=== PATIENT | male | born 1970 | race Caucasian/White ===

== ENCOUNTER 2019-03-13 17:46 | Emergency (ER) | payer MEDICAID ==
--- NOTE | 2019-03-13 18:20 | ED Physician Chart ---
ED Chief Complaint/HPI - Patient Information Date Seen:: 03/13/19 Time Seen:: 18:10 Chief Complaint:: left wrist pain History of Present Illness:: At about 1300 today patient fell 6-8 feet off a ladder breaking with his left hand apparently hyperextending his wrist as he landed. Patient denies other injuries. Patient was drinking alcohol today. Allergies:: Allergies Allergy/AdvReac Type Severity Reaction Status Date / Time No Known Allergies Allergy Verified 03/13/19 18:09 Vitals:: Vital Signs - 8 hr 03/13/19 17:57 Temp 99.2 F HR 90 RR 18 BP 118/78 O2 Sat % 97 Historian:: Patient, Family Member ED Review of Systems - Review of Systems General/Constitutional: No fever, No chills Skin: No skin lesions Head: No headache Eyes: No loss of vision ENT: No earache Neck: No neck pain, No swelling Cardio Vascular: No chest pain, No palpitations Pulmonary: No SOB G/U: No dysuria Musculoskeletal: Bone or joint pain Endocrine: No polyuria Psychiatric: No prior psych history, No depression, No anxiety Hematopoietic: No bruising Allergic/Immuno: No urticaria Neurological: No syncope, No focal symptoms ED Past Medical History - Past Medical History Past Medical History: No significant medical hx Family History: None Social History: Non Smoker, Alcohol Surgical History: None Psychiatricy History: None Medication: None Family Medical History - Family Member Mother History Unknown: Yes ED Physical Exam - Physical Examination General/Constitutional: Well-developed, well-nourished, Alert, No distress Head: Atraumatic Eyes: Lids, conjuctiva normal, PERRL Skin: Nl inspection, No rash ENMT: External ears, nose nl Neck: No nuchal rigidity Respiratory: Nl effort/Exclusion, Clear to Auscultation Cardio Vascular: RRR, No murmur, gallop, rubs GI: No tenderness/rebounding/guarding, No organomegaly, No hernia : No CVA tenderness Extremities: Normal digits & nails Other Extremities comments:: Left wrist: Deformity compatible with Colles' fracture: Strong left radial pulse ; capillary refill less than 2 seconds; wiggles fingers okay ED Assessment - Assessment General Assessment: Colle's fracture noted on x-ray. I asked the patient if he wanted me to try to reduce the fracture and he answered affirmatively. Skin cleansed with Betadine solution; about 15 mL of 1% lidocaine used for hematoma block; had car rental sales assistant apply distal traction on the left hand while the forearm was stabilized and at the same time I applied dorsal to palmar pressure with my left thumb on the area of maximum deformity of the radius; a palpable movement of bone was noted under my thumb; post reduction x-ray showed a 4-5 mm improvement in displacement. Ortho-Glass short arm splint applied with 4 inch Issac wraps 2. Sling and ice pack then applied. ED Septic Shock - . Is Septic Shock (SBP<90, OR Lactate>4 mmol\L) present?: No - <6hrs of presentation: Vital Signs: Vital Signs - 8 hr 03/13/19 17:57 Temp 99.2 F HR 90 RR 18 BP 118/78 O2 Sat % 97 ED Reassessment (Disposition) - Reassessment Reassessment Condition:: Improved - Diagnosis Diagnosis:: Colles' fracture left wrist - Aftercare/Follow up Instructions Aftercare/Follow-Up Instructions:: Refer to Discharge Instructions - Patient Disposition Discharge/Transfer:: Home Condition at Disposition:: Stable, Improved
--- NOTE | 2019-03-14 09:41 | Diagnostic Imaging Report ---
Left wrist 2 views Indication: pain Comparison: none Findings: There is a comminuted impacted fracture of the distal radius with intra-articular extension and dorsal angulation. Diffuse surrounding soft tissue swelling is noted. An ossicle/old fracture is seen adjacent to the distal ulna. Mild to moderate degenerative changes are noted. Impression: Comminuted, impacted distal radial fracture with intra-articular extension and dorsal angulation.
--- NOTE | 2019-03-14 09:42 | Diagnostic Imaging Report ---
Left wrist 2 views Indication: Post reduction Comparison: Left wrist x-rays earlier the same day Findings: Overlying splint has been placed limiting fine soft tissue and bony detail. Persistent comminuted impacted distal radial fracture is seen with mild dorsal angulation without significant change in alignment. Tiny ossicle is seen adjacent distal ulna. Impression: No significant change in alignment in comminuted impacted distal radial fracture with dorsal angulation. Overlying splint has been placed.
== END 2019-03-13 19:43 | disposition home or self-care (01) ==
LOC: ER 17:46
DX: S52.532A Colles' fracture of left radius, initial encounter for closed fracture (principal); W11.XXXA Fall on and from ladder, initial encounter; Y93.89 Activity, other specified; Y92.89 Other specified places as the place of occurrence of the external cause; Y99.8 Other external cause status
CPT/HCPCS: 73100-TC-LT